=== PATIENT | female | born 1975 | race Hispanic/Latino ===

== ENCOUNTER 2016-11-09 16:34 | Outpatient (CLI) | payer OTHER ==
--- NOTE | 2016-11-09 17:44 | RAD ---
PA AND LATERAL VIEWS OF CHEST: Date: 11/09/16 HISTORY: Cough. FINDINGS: The heart size is normal. The lungs are well expanded without focal areas of consolidation, pneumoth orax, or pleural effusions. No acute osseous abnormalities are seen. IMPRESSION: No radiographic evidence of acute cardiopulmonary process. POS: [facility]
== END 2016-11-09 16:35 | disposition home or self-care (01) ==
LOC: MADRAD 16:34
PROVIDERS: ATTEND Family Medicine
DX: J18.1 Lobar pneumonia, unspecified organism (principal); R05 Cough
CPT/HCPCS: 71020

== ENCOUNTER 2017-01-09 14:51 | Emergency (ER) | payer OTHER ==
[2017-01-09] MEDS ORDERED: Aspirin 325 MG TAB ONE (15:30)
[2017-01-09 15:54] LABS: #Basophils 0.1 thou/uL (0.0-0.2); #Eosinphils 0.1 thou/uL (0.0-0.7); #Monocytes 0.6 thou/uL (0.11-0.59); #Neutrophils 3.6 thou/uL (1.40-6.50); %Basophils 1.6 % (0.0-1.0); %Eosinophils 2.1 % (0.0-10.0); %Lymphocytes 30.7 % (21.0-51.0); %Monocytes 9.9 % (0.0-10.0); %Neutrophils 55.7 % (42.0-75.0); Hemoglobin 13.9 g/dL (12.0-16.0); Mean Corpuscular HGB CONC 34.9 g/dL (32.0-36.0); Mean Corpuscular Hemoglobin 30.4 pg (27.0-31.0); Mean Corpuscular Volume 87.1 fl (81.0-99.0); Mean Platelet Volume 8.2 fL (7.4-10.4); PTT 27.2 SEC (22.9-36.1); Platelet Count 266 thou/uL (130-400); Prothrombin Time 13.9 SEC (12.0-14.7); RBC Distribution Width 12.3 % (11.5-14.5); Red Blood Cell (RBC) Count 4.57 mill/uL (4.20-5.40); White Blood Cell (WBC) Count 6.4 thou/uL (4.8-10.8)
[2017-01-09 16:07] LABS: ALT (SGPT) 20 U/L (8-55); AST (SGOT) 26 U/L (5-34); Albumin 4.1 g/dL (3.5-5.0); Alkaline Phosphatase 54 U/L (40-150); Anion Gap 14 mmol/L (10-20); BUN (Urea Nitrogen) 13 mg/dL (7.0-18.7); Bilirubin, Total 0.3 mg/dL (0.2-1.2); CK (CPK) 76 U/L (29-168); Calc. Creatinine Clearance 0 mL/min (70-130); Calcium 9.3 mg/dL (7.8-10.44); Carbon Dioxide 22 mmol/L (22-29); Chloride 110 mmol/L (98-107); Estimated GFR-MDRD 85; Globulin 2.8 g/dL (2.4-3.5); Glucose 103 mg/dL (70-105); Magnesium 2.4 mg/dL (1.6-2.6); Potassium 3.9 mmol/L (3.5-5.1); Protein, Total 6.9 g/dL (6.0-8.3); Sodium 142 mmol/L (136-145)
[2017-01-09 16:13] LABS: CKMB 0.7 ng/mL (0-6.6); Troponin I Less than 0.010 ng/mL (< 0.028)
--- NOTE | 2017-01-09 18:43 | RAD ---
CHEST TWO VIEWS HISTORY: Chest pain. COMPARISON: Chest, two views, from 11/09/2016. FINDINGS: The lungs are clear. No pneumothorax or effusion. The cardiac silhouette and mediastinal contours are normal. IMPRESSION: No acute cardiopulmonary process. POS: [facility]
== END 2017-01-09 16:40 | disposition home or self-care (01) ==
LOC: MADERS 14:51
DX: K21.9 Gastro-esophageal reflux disease without esophagitis (principal); E78.5 Hyperlipidemia, unspecified
CPT/HCPCS: 36415; 71020; 80053; 82553; 83735; 83880; 84484; 85025; 85610; 85730; 93005; 94760

== ENCOUNTER 2018-11-14 11:15 | Outpatient (CLI) | payer OTHER ==
--- NOTE | 2018-11-14 11:55 | RAD ---
FExam: Acute abdominal series with frontal view chest and two-view abdomen HISTORY:Upper abdominal pain Comparison: None available FINDINGS: Lungs: No masses or consolidation. Cardiac silhouette: Normal Pulmonary vessels: Normal Pleural Spaces: Clear Pneumothorax: None Abdomen: No free air. Moderate retained fecal material colon with nonobstructed bowel gas pattern. Me tallic clips are seen at right upper quadrant. Osseous abnormalities: None IMPRESSION: No acute cardiopulmonary process.
--- NOTE | 2018-11-14 13:15 | ULT ---
BILATERAL RENAL ULTRASOUND: Date: 11/14/18 HISTORY: Renal colic, bilateral flank pain. FINDINGS: The right kidney measures 10.5 cm in length and the left kidney measures 11.3 cm in length. No focal mass or hydronephrosis is seen on either side. No shadowing calculus is noted. The urinary bladder pantoja s a pre-void volume of 255 mL and a post-void residual of 54 mL. IMPRESSION: No evidence of high grade urinary tract obstruction. POS: [facility]
== END 2018-11-14 11:16 | disposition home or self-care (01) ==
LOC: MADRAD 11:15
PROVIDERS: ATTEND Family Medicine
DX: R10.812 Left upper quadrant abdominal tenderness (principal); R10.814 Left lower quadrant abdominal tenderness
CPT/HCPCS: 74022; 76770

== ENCOUNTER 2019-01-16 20:45 | Emergency (ER) | payer OTHER ==
[~2019-01-16 20:45] MED LIST: Iopamidol 370 76% 100 ML VIAL ONE
[2019-01-16] MEDS ORDERED: Ketorolac Tromethamine 30 MG/ML VIAL ONE (21:02)
[2019-01-16] MEDS ORDERED: Lactated Ringer's 1,000 ML ONE (21:02)
[2019-01-16 21:18] LABS: #Basophils 0.1 thou/uL (0.0-0.2); #Eosinphils 0.1 thou/uL (0.0-0.7); #Lymphocytes 1.4 thou/uL (1.20-3.40); #Monocytes 0.5 thou/uL (0.11-0.59); #Neutrophils 4.5 thou/uL (1.40-6.50); %Basophils 1.3 % (0.0-1.0); %Eosinophils 2.2 % (0.0-10.0); %Monocytes 7.7 % (0.0-10.0); %Neutrophils 67.9 % (42.0-75.0); Hemoglobin 13.3 g/dL (12.0-16.0); Mean Corpuscular HGB CONC 34.7 g/dL (32.0-36.0); Mean Corpuscular Hemoglobin 30.4 pg (27.0-31.0); Mean Corpuscular Volume 87.7 fL (78.0-98.0); Mean Platelet Volume 6.4 fL (7.4-10.4); Platelet Count 263 thou/uL (130-400); RBC Distribution Width 12.1 % (11.5-14.5); Red Blood Cell (RBC) Count 4.36 mill/uL (4.20-5.40); White Blood Cell (WBC) Count 6.6 thou/uL (4.8-10.8)
[2019-01-16 21:34] LABS: BHCG - Serum Negative (NEGATIVE); Pregs Control Background? CLEAR/WHITE (CLR/WHITE); Pregs Control Bar Appear? YES (CONTROL BAR)
[2019-01-16 21:38] LABS: ALT (SGPT) 33 U/L (8-55); AST (SGOT) 59 U/L (5-34); Albumin 4.1 g/dL (3.5-5.0); Alkaline Phosphatase 67 U/L (40-150); Anion Gap 13 mmol/L (10-20); BUN (Urea Nitrogen) 10 mg/dL (7.0-18.7); Bilirubin, Total 0.6 mg/dL (0.2-1.2); CK (CPK) 67 U/L (29-168); Calc. Creatinine Clearance 0 mL/min (70-130); Calcium 8.8 mg/dL (7.8-10.44); Carbon Dioxide 24 mmol/L (22-29); Chloride 107 mmol/L (98-107); Estimated GFR-MDRD Greater than 90; Globulin 2.9 g/dL (2.4-3.5); Glucose 101 mg/dL (70-105); Lipase 41 U/L (8-78); Potassium 3.9 mmol/L (3.5-5.1); Sodium 140 mmol/L (136-145)
[2019-01-16 22:00] LABS: Clarity Clear (Clear)
[2019-01-16 22:01] LABS: Bilirubin Negative (Negative); Blood, Urine Small (Negative); Glucose, Urine (Dipstick) Negative (Negative); Leukocyte Small (Negative); Nitrite Negative (Negative); Protein, Urine (Dipstick) Negative (Neg-Trace); Urobilinogen 0.2 mg/dL (0.2-1.0)
[2019-01-16 22:03] LABS: RBC/HPF 0-3 HPF (0-3)
[2019-01-16 22:04] LABS: Bacteria/HPF None Seen HPF (None Seen); Squamous Epithelial 0-3 HPF (0-3)
--- NOTE | 2019-01-16 22:51 | CT ---
CT ABDOMEN AND PELVIS WITH IV CONTRAST: 01/16/2019 HISTORY: Abdominal pain and nausea, with onset of symptoms one day ago. COMPARISON: None. FINDINGS: Pleural-based nodular density at the left lung base. Post cholecystectomy changes are seen. The liver, pancreas, bilateral adrenal glands, abdominal aorta, and urinary bladder demonstrate a nor mal CT appearance. A calcified granuloma is present in the spleen. A subcentimeter, [id number], hypodense lesion is seen in the superior pole, left kidne y, statistically most likely representing a cyst. There is a also a very tiny, subcentimeter, too-sm dui-po-zxlxxydnssug, hypodense lesion in the superior pole, right kidney. The uterus demonstrates a normal CT appearance for the patient's age. There is an irregular, low den sity structure seen in the right adnexal region, measuring 1.7 cm, with an enhancing rim, likely rela mulu to an involuting cyst or follicle. The stomach is distended with fluid and particulate matter, which may be related to recent ingestion of a meal. Nondilated, fluid-filled loops of small bowel are seen. The appendix is normal in caliber without periappendiceal inflammatory changes identified. IMPRESSION: 1. No acute findings are seen in the abdomen or pelvis. 2. Small, fat-containing umbilical hernia. 3. Probable involuting cyst versus follicle, right ovary. 4. Subcentimeter, aib-hcjxk-ae-characterize, hypodense lesions, each kidney. 5. Post cholecystectomy changes. POS: [facility]
== END 2019-01-16 22:30 | disposition home or self-care (01) ==
LOC: MERGE 20:45 → MADERS 20:45
DX: R10.13 Epigastric pain (principal); I10 Essential (primary) hypertension
CPT/HCPCS: 74177; 80053; 81003; 81015; 82550; 83690; 84484; 84703; 85025; 93005; 96361; 96374; J1885; J7120; Q9967

== ENCOUNTER 2019-04-12 11:53 | Outpatient (CLI) | payer OTHER ==
--- NOTE | 2019-04-12 14:19 | CT ---
CT ABDOMEN AND PELVIS WITH IV AND ORAL CONTRAST: 04/12/19 HISTORY: Abdominal pain. Weight loss. Diarrhea. Family history of gastric cancer. FINDINGS: Compared to 01/16/19. Lung bases are clear. Breast implants partially visualized. Gallbladder is surgically absent. No fill ing defects are apparent within the stomach. Small left renal cysts, stable. Nonspecific, nonenlarged lymph nodes throughout the retroperitoneum. Appendix is not inflamed. No evidence of bowel obstructi on. Dominant left ovarian follicle, 2.8 cm. No free air or free fluid. IMPRESSION: Chronic type findings are stable. No abnormalities are demonstrated to explain the patient's symptoms . POS: [facility]
== END 2019-04-12 11:54 | disposition home or self-care (01) ==
LOC: MADCT 11:53
PROVIDERS: ATTEND Family Medicine
DX: R19.7 Diarrhea, unspecified (principal); E34.0 Carcinoid syndrome
CPT/HCPCS: 74177; Q9967

== ENCOUNTER 2021-07-02 20:18 | Outpatient (CLI) | payer OTHER | END 2021-07-02 20:19 | disposition home or self-care (01) | LOC: MADLAB 20:18 | PROVIDERS: ATTEND Family Medicine | DX: Z01.411 Encounter for gynecological examination (general) (routine) with abnormal findings (principal) | CPT/HCPCS: 88142; G0123 ==